=== PATIENT | male | born 2000 | race Caucasian/White ===

== ENCOUNTER 2023-09-09 10:41 | Emergency (ER) | payer OTHER, SELFPAY ==
[2023-09-09 10:45] VITALS: BP 138/80; PULSE 93; RESP 16; TEMP 36.7; O2SAT 98; BMI 21.5
[2023-09-09 10:53] VITALS: O2SAT 98
--- NOTE | 2023-09-09 10:54 | PC.NURSE ---
pt has bilat forearm bruises that may appear to be track head. pt concerned with RFA and this one has a firm area to middle of bruise. no drainage from either
--- NOTE | 2023-09-09 13:11 | ED_ITS ---
Documented by User: LEXX Hurst 09/09/23 13:16 HPI - General Adult General Chief complaint: Extremity Injury, Upper Stated complaint: UPPER EXTREMITY PAIN Time Seen by Provider: 09/09/23 11:24 Source: patient Mode of arrival: walk-in History of Present Illness HPI narrative: Patient is a 23-year-old male who presents to the emergency department for pain at the area of a bruise to the volar right forearm. He states he hit his right forearm on a piece of metal and has had bruising with a firm area centrally. No other associated injuries. He states he is having pain with movement of the arm and wrist and was concerned, he is unable to do his job today and request a work note. No medications taken prior to arrival. Related Data Home Medications ?Medication ?Instructions ?Recorded ?Confirmed lisdexamfetamine 20 mg capsule 20 mg PO DAILY 09/09/23 09/09/23 (Vyvanse) oxybutynin chloride 5 mg 5 mg PO DAILY 09/09/23 09/09/23 tablet,extended release 24 hr Previous Rx's ?Medication ?Instructions ?Recorded naproxen sodium 550 mg tablet 550 mg PO BID PRN pain #10 tabs 09/09/23 Allergies Allergy/AdvReac Type Severity Reaction Status Date / Time No Known Drug Allergies Allergy Verified 09/09/23 10:50 Review of Systems ROS Constitutional Denies: fever or chills Ears, nose, mouth, and throat Denies: throat pain or nasal congestion Respiratory Denies: shortness of breath Gastrointestinal Denies: nausea or vomiting Musculoskeletal Reports: extremity pain; Denies: back pain or neck pain Hematologic/Lymphatic Denies: easy bruising or easy bleeding Exam Narrative Exam Narrative: Gen.: Awake, alert, in no distress Head: Normocephalic, atraumatic ENT: Moist mucous membranes Respiratory: No respiratory distress Extremities: Moves extremities equally, Right volar forearm with healing ecchymosis, small area of firm hematoma centrally noted. No open wounds, red streaking or drainage. No blanching erythema. No bony tenderness of the right forearm. 2+ right radial pulse. Psych: Normal mood and affect Neuro: No focal neuro deficit Skin: Warm, dry, intact Constitutional Vital Signs, click to edit/add: Last Vital Signs Temp 98.1 F 09/09/23 10:45 Pulse 93 H 09/09/23 10:45 Resp 16 09/09/23 10:45 BP 138/80 09/09/23 10:45 Pulse Ox 98 09/09/23 10:53 O2 Del Method Room Air 09/09/23 10:53 Course Vital Signs Vital signs: Vital Signs Temperature 98.1 F 09/09/23 10:45 Pulse Rate 93 H 09/09/23 10:45 Respiratory Rate 16 09/09/23 10:45 Blood Pressure 138/80 09/09/23 10:45 Pulse Oximetry 98 09/09/23 10:45 Oxygen Delivery Method Room Air 09/09/23 10:45 Temperature 98.1 F 09/09/23 10:45 Pulse Rate 93 H 09/09/23 10:45 Respiratory Rate 16 09/09/23 10:45 Blood Pressure 138/80 09/09/23 10:45 Pulse Oximetry 98 09/09/23 10:53 Oxygen Delivery Method Room Air 09/09/23 10:53 Medical Decision Making MDM Narrative Medical decision making narrative: Area is consistent with contusion versus hematoma of the right forearm with no bony tenderness. He is neurovascularly intact, compartment of the right forearm is soft. Patient placed on anti-inflammatories, encouraged to keep ice to the area. Follow-up with PCP and return to the ER if symptoms change or worsen Medical Records Medical records reviewed: Yes I reviewed the patient's medical records Discharge Plan Discharge Stand Alone Forms: Portal Instructions Chief Complaint: Extremity Injury, Upper Clinical Impression: Contusion of forearm, right Patient Disposition: Home, Self-Care Time of Disposition Decision: 13:10 Condition: Good Prescriptions / Home Meds: New naproxen sodium 550 mg tablet 550 mg PO BID PRN (Reason: pain) Qty: 10 0RF No Action lisdexamfetamine [Vyvanse] 20 mg capsule 20 mg PO DAILY oxybutynin chloride 5 mg tablet extended release 24hr 5 mg PO DAILY Print Language: Trinidadian Instructions: Contusion in Adults (ED) Referrals: JULISSA PELLETIER [Primary Care Provider] - 1 week Discharge Date/Time: 09/09/23 13:21 Documented by User: Travis Bryant 09/09/23 13:37 HPI - General Adult General Chief complaint: Extremity Injury, Upper Stated complaint: UPPER EXTREMITY PAIN Time Seen by Provider: 09/09/23 11:24 Related Data Home Medications ?Medication ?Instructions ?Recorded ?Confirmed lisdexamfetamine 20 mg capsule 20 mg PO DAILY 09/09/23 09/09/23 (Vyvanse) oxybutynin chloride 5 mg 5 mg PO DAILY 09/09/23 09/09/23 tablet,extended release 24 hr Previous Rx's ?Medication ?Instructions ?Recorded naproxen sodium 550 mg tablet 550 mg PO BID PRN pain #10 tabs 09/09/23 Allergies Allergy/AdvReac Type Severity Reaction Status Date / Time No Known Drug Allergies Allergy Verified 09/09/23 10:50 Exam Constitutional Vital Signs, click to edit/add: Last Vital Signs Temp 98.1 F 09/09/23 10:45 Pulse 93 H 09/09/23 10:45 Resp 16 09/09/23 10:45 BP 138/80 09/09/23 10:45 Pulse Ox 98 09/09/23 10:53 O2 Del Method Room Air 09/09/23 10:53 Course Vital Signs Vital signs: Vital Signs Temperature 98.1 F 09/09/23 10:45 Pulse Rate 93 H 09/09/23 10:45 Respiratory Rate 16 09/09/23 10:45 Blood Pressure 138/80 09/09/23 10:45 Pulse Oximetry 98 09/09/23 10:45 Oxygen Delivery Method Room Air 09/09/23 10:45 Temperature 98.1 F 09/09/23 10:45 Pulse Rate 93 H 09/09/23 10:45 Respiratory Rate 16 09/09/23 10:45 Blood Pressure 138/80 09/09/23 10:45 Pulse Oximetry 98 09/09/23 10:53 Oxygen Delivery Method Room Air 09/09/23 10:53 Medical Decision Making [facility] Narrative Medical decision making narrative: Area is consistent with contusion versus hematoma of the right forearm with no bony tenderness. He is neurovascularly intact, compartment of the right forearm is soft. Patient placed on anti-inflammatories, encouraged to keep ice to the area. Follow-up with PCP and return to the ER if symptoms change or worsen For this patient encounter I reviewed the mid-level provider?s documentation, medical decision-making and treatment plan, and I personally spent time with this patient. Shared APC visit, physician attestation: [id number]: The visit was performed by both a physician and an APC. I performed all aspects of MDM as documented. - JHay, DO Discharge Plan Discharge Stand Alone Forms: Portal Instructions Chief Complaint: Extremity Injury, Upper Clinical Impression: Contusion of forearm, right Patient Disposition: Home, Self-Care Time of Disposition Decision: 13:10 Condition: Good Prescriptions / Home Meds: New naproxen sodium 550 mg tablet 550 mg PO BID PRN (Reason: pain) Qty: 10 0RF No Action lisdexamfetamine [Vyvanse] 20 mg capsule 20 mg PO DAILY oxybutynin chloride 5 mg tablet extended release 24hr 5 mg PO DAILY Print Language: Trinidadian Instructions: Contusion in Adults (ED) Referrals: JULISSA PELLETIER [Primary Care Provider] - 1 week Discharge Date/Time: 09/09/23 13:21
== END 2023-09-09 13:21 | disposition home or self-care (01) ==
PROVIDERS: Emergency Provider Emergency Medicine; PCP Family Medicine
DX: S50.11XA Contusion of right forearm, initial encounter (principal); W22.8XXA Striking against or struck by other objects, initial encounter
CPT/HCPCS: 99283

== ENCOUNTER 2024-08-26 19:39 | Emergency (ER) | payer OTHER, SELFPAY ==
[2024-08-26 19:46] VITALS: BP 106/73; PULSE 85; TEMP 36.8; O2SAT 99; BMI 20.8
[2024-08-26 22:30] LABS: Bilirubin Urine NEGATIVE (NEGATIVE); Blood Urine NEGATIVE (NEGATIVE); Clarity Urine CLEAR (CLEAR); Color Urine LT. YELLOW (YELLOW); Glucose Urine UA NEGATIVE (NEGATIVE); Ketones Urine NEGATIVE (NEGATIVE); Leukocyte Esterase Urine NEGATIVE (NEGATIVE); Nitrite Urine NEGATIVE (NEGATIVE); Protein Urine NEGATIVE (NEG/TRACE); Urobilinogen Urine 0.2 EU/dL (0.2-1.0); pH Urine 5.5 (5.0-9.0)
[2024-08-26 22:38] LABS: Bacteria Urine NONE SEEN #/HPF (NONE SEEN); Cast Seen? NONE SEEN #/LPF (NONE SEEN); Crystals Seen? None Seen #/HPF (None Seen); Mucus Urine TRACE (NONE SEEN); RBC Urine 0-2 #/HPF (0-2); Squamous Epithelial Cell Urine NONE SEEN #/LPF (NONE/RARE); Urine Culture Indicated NO; WBC Urine 0-2 #/HPF (NONE SEEN)
== END 2024-08-26 23:22 | disposition left against medical advice (07) ==
PROVIDERS: Emergency Provider Emergency Medicine; PCP Family Medicine
DX: R10.9 Unspecified abdominal pain (principal); Z53.8 Procedure and treatment not carried out for other reasons
CPT/HCPCS: 81001; 99281

== ENCOUNTER 2024-08-27 11:04 | Outpatient (OUT) | payer OTHER, SELFPAY | END 2024-08-27 11:05 | disposition home or self-care (01) | PROVIDERS: PCP Family Medicine; Visit Provider Family Medicine | DX: R10.31 Right lower quadrant pain (principal); R63.0 Anorexia | CPT/HCPCS: 74177; Q9966; Q9967 ==

== ENCOUNTER 2024-08-27 13:45 | Emergency (ER) | payer OTHER, SELFPAY ==
[2024-08-27 14:07] VITALS: BP 150/79; PULSE 84; TEMP 36.6; O2SAT 98; BMI 22.4
--- NOTE | 2024-08-27 14:09 | ED_ITS ---
HPI - Abdominal Pain General Chief Complaint: Abdominal Pain Stated Complaint: ABDOMINAL PAIN Time Seen by Provider: 08/27/24 14:02 Source: patient and family History of Present Illness HPI narrative: Patient is a 24-year-old male who presents to the emergency department from outpatient imaging at the request of his primary care provider. Patient had an outpatient CT just prior to arrival for right lower quadrant pain that began yesterday. He came to this emergency department but after waiting several hours to be seen, he felt his pain had improved so he signed out AGAINST MEDICAL ADVICE without being evaluated by a provider. His primary care provider ordered the CT scan today and it was positive for acute appendicitis with suspected early perforation by the radiologist. Patient has been n.p.o. since last night although he did have several sips of water this morning. He states his pain is not severe at this time. no medications taken prior to arrival. No previous abdominal surgeries. He has no other major medical conditions, he takes Focalin daily for ADHD Related Data Home Medications ?Medication ?Instructions ?Recorded ?Confirmed lisdexamfetamine 20 mg capsule 20 mg PO DAILY 09/09/23 08/26/24 (Vyvanse) oxybutynin chloride 5 mg 5 mg PO DAILY 09/09/23 08/26/24 tablet,extended release 24 hr dexmethylphenidate 20 mg 20 mg PO DAILY 08/27/24 08/27/24 capsule,extended release [id number] Allergies Allergy/AdvReac Type Severity Reaction Status Date / Time No Known Drug Allergies Allergy Verified 08/27/24 14:10 Review of Systems ROS Constitutional Denies: fever or chills Ears, nose, mouth, and throat Denies: throat pain or nasal congestion Cardiovascular Denies: chest pain Respiratory Denies: shortness of breath or cough Gastrointestinal Reports: abdominal pain; Denies: nausea, vomiting or diarrhea Genitourinary Denies: painful urination Musculoskeletal Denies: back pain Integumentary/Breast Denies: rash Neurological Denies: numbness in extremities or weakness in extremities Hematologic/Lymphatic Denies: easy bruising or easy bleeding PFSH PFSH Social History Little interest or pleasure in doing things: not at all Feeling down, depressed, or hopeless: not at all Exam Narrative Exam Narrative: Gen.: Awake, alert, in no distress Head: Normocephalic, atraumatic ENT: Moist mucous membranes Respiratory: No respiratory distress Gastrointestinal: Abdomen is soft, nondistended and tender to palpation in the right lower quadrant with no guarding or rebound Extremities: Moves extremities equally Psych: Normal mood and affect Neuro: No focal neuro deficit Skin: Warm, dry, intact Constitutional Vital Signs, click to edit/add: Last Vital Signs Temp 97.9 F 08/27/24 14:07 Pulse 84 08/27/24 14:07 Resp 20 08/27/24 14:07 BP 150/79 H 08/27/24 14:07 Pulse Ox 98 08/27/24 14:15 O2 Del Method Room Air 08/27/24 14:15 Course Vital Signs Vital signs: Vital Signs Temperature 97.9 F 08/27/24 14:07 Pulse Rate 84 08/27/24 14:07 Respiratory Rate 20 08/27/24 14:07 Blood Pressure 150/79 H 08/27/24 14:07 Pulse Oximetry 98 08/27/24 14:07 Oxygen Delivery Method Room Air 08/27/24 14:07 Temperature 97.9 F 08/27/24 14:07 Pulse Rate 84 08/27/24 14:07 Respiratory Rate 20 08/27/24 14:07 Blood Pressure 150/79 H 08/27/24 14:07 Pulse Oximetry 98 08/27/24 14:15 Oxygen Delivery Method Room Air 08/27/24 14:15 MDM - Abdominal Pain MDM Narrative Medical decision making narrative: 1404: Patient was evaluated on arrival. His pain is well-controlled and his vital signs are stable in the ER. Repeat labs were ordered with IV fluids and Zosyn for antibiotic coverage. At time of my initial interview, the patient and his mother were made aware that we do not have general surgery availability at this facility and they will need to be transferred to a facility with general surgery coverage. They initially requested [facility]. At 1420, the surgeon at [facility] declined the transfer. Patient and mother were made aware of this and they requested [facility], ranch hand supervisor contacted at 1421. Patient accepted for transfer by Dr. Suarez to [facility] for general surgery at 1433. He is NPO since last night with regard to food, he had sips of water this morning and oral contrast that he finished at 12pm prior to arrival. He is hemodynamically stable at this time for transfer. Critical care 35min SHARED APC VISIT, PHYSICIAN ATTESTATION: [id number] I performed a substantive part of the MDM during the patient?s E/M visit. I personally evaluated and examined the patient. I personally made or approved the documented management plan and acknowledge its risk of complications. Medical Records Attestation: I reviewed the patient's medical records. Lab Data Attestation: I reviewed the patient's lab results. Imaging Data CT scan - abdomen: Attestation: I have reviewed the pertinent imaging results. Radiologist's impression: CT of the abdomen and pelvis with IV and oral contrast: Moderate inflammatory stranding identified in the right lower quadrant surrounding a dilated appendix in the right lower quadrant with a diameter of 13.8 mm. Portions of the appendix wall at the mid and distal segments show ill-definition and early perforation is suspected. No free air identified in the peritoneal cavity. No free air identified in the right lower quadrant. No features to suggest bowel obstruction or abscess. Trace free fluid in the lower posterior pelvis. Critical Care Time Critical Care Time Critical Care Time: Yes Total Critical Care Time: 35 Attestation: 35 minutes of critical care time for treatment of surgical abdomen with transfer to outside hospital for surgical management Discharge Plan Discharge Chief Complaint: Abdominal Pain Clinical Impression: Acute appendicitis, Abdominal pain Patient Disposition: [facility] Time of Disposition Decision: 14:39 Discharge location: [facility] Condition: Good Mode of Transportation: Private Vehicle Prescriptions / Home Meds: No Action lisdexamfetamine [Vyvanse] 20 mg capsule 20 mg PO DAILY oxybutynin chloride 5 mg tablet extended release 24hr 5 mg PO DAILY dexmethylphenidate 20 mg capsule,ER biphasic 50-50 20 mg PO DAILY Print Language: Urdu Referrals: EARNEST SANCHEZ [Primary Care Provider] - 1 week
[2024-08-27 14:15] VITALS: O2SAT 98
[2024-08-27] MEDS: 0.9 % SODIUM CHLORIDE 1,000 ML 999 ML IV (14:22)
[2024-08-27] MEDS: PIPERACILLIN SODIUM/TAZOBACTAM 4.5 GM in 0.9 % SODIUM CHLORIDE 50 ML IV (14:22)
[2024-08-27 14:41] LABS: Basophils Percent Auto 0.3 % (0.2-2.0); Eosinophils Absolute Auto 0.1 10^3/uL (0.0-0.7); Hematocrit 40.5 % (42.0-54.0); Immature Granulocytes Abs Auto 0.03 10^3/uL (0.00-0.03); Immature Granulocytes Pct Auto 0.3 % (0.0-0.5); Lymphocytes Absolute Auto 1.9 10^3/uL (1.2-3.8); Lymphocytes Percent Auto 19.8 % (20.5-60.0); Mean Corpuscular HGB Conc 34.6 g/dL (29.9-35.2); Mean Corpuscular Hemoglobin 29.4 pg (25.9-34.0); Mean Corpuscular Volume 85.1 fL (80.0-94.0); Mean Platelet Volume 10.2 fL (9.5-13.5); Monocytes Percent Auto 10.1 % (1.7-12.0); Neutrophils Absolute Auto 6.7 10^3/uL (1.4-6.5); Neutrophils Percent Auto 68.5 % (43.0-75.0); Platelet Count 174 10^3/uL (150-450); Red Blood Count 4.76 10^6/uL (4.70-6.10); Red Cell Distribution Width 12.2 % (11.0-15.0); White Blood Count 9.8 10^3/uL (4.0-11.0)
[2024-08-27 14:57] LABS: Alanine Aminotransferase 21 U/L (16-63); Albumin Globulin Ratio 1.4; Albumin Level 4.4 g/dL (3.4-5.0); Alkaline Phosphatase 62 U/L (46-116); Aspartate Amino Transferase 15 U/L (15-37); BUN Creatinine Ratio 15.4; Bilirubin Total 1.4 mg/dL (0.2-1.0); Calcium 9.4 mg/dL (8.5-10.1); Carbon Dioxide 27.2 mmol/L (21.0-32.0); Chloride 100 mmol/L (98-107); Estimated GFR (African America >60 (>=60 mL/min/1.73m^2); Estimated GFR (Non-African Ame >60 (>=60 mL/min/1.73m^2); Globulin 3.1 g/dL; Glucose 100 mg/dL (74-106); Potassium 4.2 mmol/L (3.5-5.1); Sodium 139 mmol/L (136-145); Total Protein 7.5 g/dL (6.4-8.2)
[2024-08-27 14:59] LABS: Lactate/Lactic Acid 0.8 mmol/L (0.4-2.0)
[2024-08-27 15:01] LABS: INR 1.17; Prothrombin Time 12.2 sec (9.0-11.6)
[2024-08-27 15:09] VITALS: BP 117/73; PULSE 79; O2SAT 100
== END 2024-08-27 16:05 | disposition short-term general hospital (02) ==
PROVIDERS: Physician Assistant; Emergency Provider Emergency Medicine; PCP Family Medicine
DX: K35.80 Unspecified acute appendicitis (principal); R10.9 Unspecified abdominal pain; R10.31 Right lower quadrant pain; R63.0 Anorexia
CPT/HCPCS: 36415; 74177; 80053; 83605; 85025; 85610; 96365; 99285; J2543; Q9966; Q9967